=== PATIENT | female | born 1940 | race Two or more races ===

== ENCOUNTER 2020-02-03 16:21 | Emergency (ER) | payer MEDICARE, MEDICAID ==
[~2020-02-03] VITALS: Ht 152.4 cm; Wt 45.4 kg
[2020-02-03 16:21] VITALS: BP 121/81
[2020-02-03] MEDS ORDERED: ASPIRIN81 MG ORAL (16:40)
[2020-02-03] MEDS ORDERED: ATORVASTATIN CA20 MG ORAL (16:40)
[2020-02-03] MEDS ORDERED: METFORMIN HCL500 M1 ORAL (16:40)
[2020-02-03] MEDS ORDERED: IRON325 M1 PO (16:40)
--- NOTE | 2020-02-03 16:42 | Emergency Room Report ---
History of Present Illness General Chief Complaint: Generalized Weakness Source: Patient Present Illness HPI Patient fell 4 days ago. She slipped. There is no loss of consciousness. She has been complaining about discomfort in her abdomen and also her right hip but has been ambulatory. She now has a fever and chills. She denies productive cough or sore throat. She has been/socially isolating however her daughter has been bringing her food from [employer]. There is no diarrhea. She denies dysuria. She is complaining about generalized weakness at this time. There is no headache. Patient is a diabetic on Metformin. She is uncertain about her blood sugars. She denies any polyuria or polydipsia. History of hypertension. No sore throat, chest pain, palpitations, nausea, vomiting, abdominal pain, shortness of breath, rashes, visual changes, dizziness, headache. Allergies: Coded Allergies: No Known Allergies (Unverified , 02/03/20) COVID-19 Screening Contact w/high risk pt: No Experienced COVID-19 symptoms?: Yes COVID-19 Testing performed [employer] OPERATOR: No Patient History Past Medical History: see triage record Social History: Denies: smoking, alcohol use, drug use Social History Narrative Has been at home, daughter has been supplying her from food from [employer] where the daughter works. The patient is a Reviewed Nursing Documentation: PMH: Agreed; PSxH: Agreed Nursing Documentation-PMH Past Medical History: No History, Except For Hx Hypertension: Yes Hx Diabetes: Yes Review of Systems All Other Systems: negative except mentioned in HPI Physical Exam Vital Signs Date Time Temp Pulse Resp B/P (MAP) Pulse Ox O2 Delivery O2 Flow Rate FiO2 02/03/20 16:30 100.0 90 17 134/66 (88) 96 Room Air Sp02 EP Interpretation: reviewed, normal - Slightly low but interpreted as normal by me. This was normal on repeat evaluation at bedside General Appearance: well appearing, no apparent distress, GCS 15, non-toxic Head: normocephalic, atraumatic Eyes: bilateral eye normal inspection, bilateral eye PERRL, bilateral eye EOMI ENT: normal pharynx, moist mucus membranes Neck: supple, no meningismus Respiratory: lungs clear, normal breath sounds Cardiovascular #1: regular rate, rhythm Cardiovascular #2: 2+ radial (R) Gastrointestinal: normal inspection, normal bowel sounds, non tender, no mass, non-distended Musculoskeletal: back normal, normal range of motion, gait/station normal, other - Right hip area with minimal tenderness but able to ambulate no knee or flank pain Neurologic: alert, oriented x3, grossly normal Psychiatric: mood/affect normal Skin: no rash, warm/dry Medical Decision Making Diagnostic Impression: Primary Impression: COVID-19 virus detected Additional Impression: Episode of generalized weakness ER Course Patient presents with generalized weakness after fall several days ago with low- grade fever. Differential includes urinary tract infection, Covid, other occult infection, hip contusion amongst others. Patient evaluated with EKG chest x-ray and labs. Patient placed on cardiac specialist. Isolation precautions undertaken. EKG without injury. Chest x-ray old injuries to the left chest. No infiltrates. CBC with low white count. CMP with minimally low potassium. Inflammatory markers for COVID-19 minimally elevated. COVID-19 test positive. Discussed results with patient and daughter. At this time due to her Covid risk factors and assessment the main ones are age, diabetes and hypertension. Based on her vital signs and clinical presentation along with labs she has mild disease. There is no indication for hospitalization at this time. Discussed treatment plan with patient and daughter. Discussed observation at home. Discussed treatment plan and follow-up. Also discussed daughter's risk for having COVID-19 also. Patient stable for outpatient observation and treatment.. Laboratory Tests Test 02/03/20 16:32 02/03/20 18:30 White Blood Count 5.8 K/UL (4.8-10.8) Red Blood Count 3.87 M/UL (4.20-5.40) L Hemoglobin 12.6 G/DL (12.0-16.0) Hematocrit 36.2 % (37.0-47.0) L Mean Corpuscular Volume 93 FL (80-99) Mean Corpuscular Hemoglobin 32.6 PG (27.0-31.0) H Mean Corpuscular Hemoglobin Concent 34.9 G/DL (32.0-36.0) Red Cell Distribution Width 11.6 % (11.6-14.8) Platelet Count 200 K/UL (150-450) Mean Platelet Volume 6.8 FL (6.5-10.1) Neutrophils (%) (Auto) 64.7 % (45.0-75.0) Lymphocytes (%) (Auto) 26.8 % (20.0-45.0) Monocytes (%) (Auto) 7.6 % (1.0-10.0) Eosinophils (%) (Auto) 0.4 % (0.0-3.0) Basophils (%) (Auto) 0.4 % (0.0-2.0) Prothrombin Time 11.3 SEC (9.30-11.50) Prothrombin Time INR 1.0 (0.9-1.1) Activated Partial Thromboplast Time 33 SEC (23-33) Sodium Level 133 MMOL/L (136-145) L Potassium Level 3.2 MMOL/L (3.5-5.1) L Chloride Level 96 MMOL/L (98-107) L Carbon Dioxide Level 31 MMOL/L (21-32) Anion Gap 7 mmol/L (5-15) Blood Urea Nitrogen 16 mg/dL (7-18) Creatinine 0.7 MG/DL (0.55-1.30) Estimated Glomerular Filtration Rate > 60 mL/min (>60) Glucose Level 136 MG/DL (74-106) H Lactic Acid Level 1.40 mmol/L (0.4-2.0) Calcium Level 8.1 MG/DL (8.5-10.1) L Magnesium Level 1.8 MG/DL (1.8-2.4) Ferritin 310 NG/ML (8-388) Total Bilirubin 0.5 MG/DL (0.2-1.0) Aspartate Amino Transferase (AST) 38 U/L (15-37) H Alanine Aminotransferase (ALT) 22 U/L (12-78) Alkaline Phosphatase 56 U/L (46-116) Lactate Dehydrogenase 247 U/L (81-234) H Total Creatine Kinase 105 U/L (26-308) Troponin I 0.000 ng/mL (0.000-0.056) C-Reactive Protein, Quantitative 3.0 mg/dL (0.00-0.90) H Pro-B-Type Natriuretic Peptide 342 pg/mL (0-125) H Total Protein 7.9 G/DL (6.4-8.2) Albumin 3.2 G/DL (3.4-5.0) L Globulin 4.7 g/dL Albumin/Globulin Ratio 0.7 (1.0-2.7) L Lipase 163 U/L (73-393) Urine Color Pale yellow Urine Appearance Clear Urine pH 6 (4.5-8.0) Urine Specific [place] 1.010 (1.005-1.035) Urine Protein 1+ (NEGATIVE) H Urine Glucose (UA) Negative (NEGATIVE) Urine Ketones Negative (NEGATIVE) Urine Blood 2+ (NEGATIVE) H Urine Nitrite Negative (NEGATIVE) Urine Bilirubin Negative (NEGATIVE) Urine Urobilinogen Normal MG/DL (0.0-1.0) Urine Leukocyte Esterase Negative (NEGATIVE) Urine RBC 0-2 /HPF (0 - 2) Urine WBC 0-2 /HPF (0 - 2) Urine Squamous Epithelial Cells Occasional /LPF Urine Bacteria Occasional /HPF (NONE) Microbiology Date/Time Source Procedure Growth Status 02/03/20 16:52 Nasopharynx SARS-CoV-2 RdRp Gene Assay - Final Complete EKG Diagnostic Results Rate: normal Rhythm: NSR ST Segments: no acute changes Rhythm Strip Diag. Results EP Interpretation: yes Rhythm: NSR, no PVC's, no ectopy Chest X-Ray Diagnostic Results Chest X-Ray Diagnostic Results : Chest X-Ray Ordered: Yes # of Views/Limited/Complete: 1 View Indication: Other EP Interpretation: Yes Interpretation: no consolidation, no effusion, no pneumothorax, other - old fxs, no infiltrates Impression: No acute disease Electronically Signed by: Electronically signed by Artie Hampton MD Last Vital Signs Date Time Temp Pulse Resp B/P (MAP) Pulse Ox O2 Delivery O2 Flow Rate FiO2 02/03/20 19:45 98.9 89 19 97/54 98 Room Air Status: improved Disposition: HOME, SELF-CARE Condition: Improved Scripts Acetaminophen (Tylenol) 325 Mg Tablet 650 MG ORAL Q6H PRN for Prn Pain/Headache/Temp > 101, #20 TAB 0 Refills Prov: Artie Hampton MD 02/03/20 Artie Hampton MD Feb 03, 2020 16:42
[2020-02-03] MEDS ORDERED: Acetaminophen 500mg (ES) tab ORAL ONE (16:45)
--- NOTE | 2020-02-03 17:11 | Diagnostic Imaging Report ---
Indication: Shortness of breath Technique: One view of the chest Comparison: none Findings: There is mild acuity indeterminate interstitial prominence and central bronchial wall thickening. There is slight blunting of the left costophrenic sulcus. The heart size is upper limits normal. Aorta is tortuous and calcified Impression: Mild interstitial prominence and central bronchial wall thickening. Suspected in the bases of senescent and bronchitis changes, but acute interstitial disease also possible. Possible small left pleural effusion
[2020-02-03 17:14] LABS: BASOPHILS % (AUTO) 0.4 % (0.0-2.0); EOSINOPHILS % (AUTO) 0.4 % (0.0-3.0); HEMATOCRIT 36.2 % (37.0-47.0); HEMOGLOBIN 12.6 G/DL (12.0-16.0); LYMPHOCYTES % (AUTO) 26.8 % (20.0-45.0); MEAN CORPUSCULAR VOLUME 93 FL (80-99); MONOCYTES % (AUTO) 7.6 % (1.0-10.0); NEUTROPHILS % (AUTO) 64.7 % (45.0-75.0); PLATELET COUNT 200 K/UL (150-450); RED BLOOD COUNT 3.87 M/UL (4.20-5.40); RED CELL DISTRIBUTION WIDTH 11.6 % (11.6-14.8); WHITE BLOOD COUNT 5.8 K/UL (4.8-10.8)
[2020-02-03 17:25] LABS: ANION GAP 7 mmol/L (5-15); BLOOD UREA NITROGEN 16 mg/dL (7-18); CALCIUM 8.1 MG/DL (8.5-10.1); CARBON DIOXIDE 31 MMOL/L (21-32); CHLORIDE 96 MMOL/L (98-107); CREATININE 0.7 MG/DL (0.55-1.30); POTASSIUM 3.2 MMOL/L (3.5-5.1); SODIUM 133 MMOL/L (136-145)
[2020-02-03 17:41] LABS: ALANINE AMINOTRANSFERASE 22 U/L (12-78); ALBUMIN 3.2 G/DL (3.4-5.0); ALBUMIN/GLOBULIN RATIO 0.7 (1.0-2.7); ALKALINE PHOSPHATASE 56 U/L (46-116); ASPARTATE AMINO TRANSFERASE 38 U/L (15-37); BILIRUBIN,TOTAL 0.5 MG/DL (0.2-1.0); CREATINE KINASE 105 U/L (26-308); FERRITIN 310 NG/ML (8-388); LACTATE DEHYDROGENASE 247 U/L (81-234)
[2020-02-03 18:20] VITALS: BP 116/65
[2020-02-03] MEDS ORDERED: TYLENOL325 MG ORAL (18:35)
[2020-02-03 18:53] LABS: APPEARANCE,URINE CLEAR; BILIRUBIN, URINE NEGATIVE (NEGATIVE); COLOR,URINE PALE YELLOW; GLUCOSE, URINE (UA) NEGATIVE (NEGATIVE); KETONES,URINE NEGATIVE (NEGATIVE); LEUKOCYTE ESTERASE ,URINE NEGATIVE (NEGATIVE); NITRITE,URINE NEGATIVE (NEGATIVE); PH,URINE 6 (4.5-8.0); PROTEIN,URINE 1+ (NEGATIVE); UROBILINOGEN,URINE NORMAL MG/DL (0.0-1.0)
[2020-02-03 19:45] VITALS: BP 97/54
--- NOTE | 2020-02-04 12:52 | Cardiology Report ---
APPROVED REPORT EKG Measurement Heart [id number] MD [id number] <Conclusion> Normal sinus rhythm Normal ECG
== END 2020-02-03 20:16 | disposition home or self-care (01) ==
LOC: EDBD 16:21 → EMR 16:45
DX: U07.1 COVID-19 (principal); R53.1 Weakness; E11.9 Type 2 diabetes mellitus without complications; I10 Essential (primary) hypertension
CPT/HCPCS: 36415; 71045; 80053; 81003; 82550; 82728; 83605; 83615; 83690; 83735; 83880; 84484; 85025; 85610; 85730; 86140; 87040; 87181; 93005; 96360; 99284; J7030; U0002; J8499